=== PATIENT | male | born 2000 | race Two or more races ===

== ENCOUNTER 2022-12-11 10:15 | Emergency (ER) | payer MEDICAID, OTHER ==
[2022-12-11] MEDS ORDERED: IBUP1TAB5 PO (15:06)
== END 2022-12-11 10:33 | disposition left against medical advice (07) ==
LOC: ER 10:15
DX: M79.643 Pain in unspecified hand (principal); Z53.21 Procedure and treatment not carried out due to patient leaving prior to being seen by health care provider

== ENCOUNTER 2022-12-11 11:33 | Emergency (ER) | payer MEDICAID ==
[~2022-12-11] VITALS: Ht 182.9 cm; Wt 80.7 kg
[2022-12-11] MEDS ORDERED: IBUP1TAB5 PO (15:06)
[2022-12-11 15:26] VITALS: BP 130/88; PULSE 3; RESP 16; TEMP 97.7; O2SAT 97
== END 2022-12-11 15:27 | disposition home or self-care (01) ==
LOC: ER 11:33
DX: S63.617A Unspecified sprain of left little finger, initial encounter (principal); S63.91XA Sprain of unspecified part of right wrist and hand, initial encounter; Z79.1 Long term (current) use of non-steroidal anti-inflammatories (NSAID); Y93.67 Activity, basketball; Y92.89 Other specified places as the place of occurrence of the external cause; Y99.8 Other external cause status
CPT/HCPCS: 29130; 73130

== ENCOUNTER 2023-02-06 14:10 | Emergency (ER) | payer MEDICAID ==
[~2023-02-06] VITALS: Ht 182.9 cm; Wt 86.5 kg
[~2023-02-06 14:10] MED LIST: IBUP1TAB5 PO
[2023-02-06 14:27] VITALS: BP 119/57; PULSE 97; RESP 18; TEMP 98.3; O2SAT 97
== END 2023-02-06 15:37 | disposition home or self-care (01) ==
LOC: ER 14:10
DX: S63.634A Sprain of interphalangeal joint of right ring finger, initial encounter (principal); W18.39XA Other fall on same level, initial encounter; Y93.67 Activity, basketball; Y92.89 Other specified places as the place of occurrence of the external cause; Y99.8 Other external cause status

== ENCOUNTER 2023-02-21 16:32 | Emergency (ER) | payer MEDICAID ==
[~2023-02-21] VITALS: Ht 182.9 cm; Wt 81.8 kg
[2023-02-21] MEDS: HYDROcodone-ACET 5/325MG TAB PO ONE ×2 (19:00→20:12)
[2023-02-21] MEDS ORDERED: DexAMETHasone SOD PHOS 10MG/1ML VIAL INJ IM ONE (19:00)
[2023-02-21] MEDS ORDERED: AMPICILLIN & SULBACTAM SODIUM 3 GM in SODIUM CHL 0.9% 100 ML IV ONE (19:00)
[2023-02-21] MEDS ORDERED: FLUT1SPR5 (19:25)
[2023-02-21] MEDS ORDERED: CLIN300C70 PO (19:25)
[2023-02-21] MEDS ORDERED: BACDST PO (19:25)
[2023-02-21] MEDS ORDERED: IBUP1TAB5 PO (19:25)
[2023-02-21] MEDS ORDERED: PRED20TA2 PO (19:26)
[2023-02-21] MEDS ORDERED: IBUPROFEN 600 MG TAB PO ONE (20:45)
[2023-02-21 21:00] VITALS: BP 130/94; PULSE 82; RESP 18; TEMP 97.9; O2SAT 98
== END 2023-02-22 03:20 | disposition home or self-care (01) ==
LOC: ER 16:32
DX: J01.90 Acute sinusitis, unspecified (principal); H60.11 Cellulitis of right external ear
CPT/HCPCS: 96365; 96366; 96372; 99284; J1100